=== PATIENT | female | born 1965 | race Caucasian/White ===

== ENCOUNTER → 2018-06-14 | Outpatient (CLI) | payer BC, OTHER ==
[~2018-06-14] VITALS: Ht 170.2 cm; Wt 68.0 kg
[~2018-06-14] MED LIST: ALLEGRA ALLERG180 MG PO; ALMOTRIPTAN M12.5 MG PO; CELEXA20 MG PO; FLEXERIL PO; VITAMIN B-12500 MCG PO; VITAMIN D-32000 UNIT PO
--- NOTE | ~2018-06-14 | PATH ---
[facility] [address] [place] [address] PATHOLOGY RPT PROCEDURE Name: SANTINOARACELI Room #: REG HYUN Vaughan.#: [id number] Admission: 06/14/18 Date of : 69 Discharge: Report #: [id number] Path Case #: [id number] [facility] Accession Number: [id number] . 01 Material submitted: . BX OF ESOPHAGUS R/O BARRETTS . 01 Clinical history: . Pre-OP DX: Heartburn Post-OP DX: Screening, colon, esophagitis, possible Solis's . 02 Diagnosis: Gastroesophageal mucosa, esophagus rule out Solis's, endoscopic biopsy: - Gastric cardia-type mucosa with moderate chronic inflammation and focal goblet cell change. - No definite intestinal metaplasia present. - Squamous mucosa with mild esophagitis. - Negative for dysplasia or malignancy. 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 02 Electronically signed: . Stephanie Goode MD, Pathologist NPI- [id number] . 01 Gross description: . Received in formalin labeled "Araceli De, BX of esophagus, rule out Solis's," are 5 segments of gaston soft tissue measuring 0.9 x 0.8 x 0.2 cm in aggregate dimensions and ranging from 0.2 to 0.3 cm in maximum dimension. The specimen is submitted entirely in cassette A1. (TSD; 06/14/2018) TOB/TOB . 02 Pathologist provided ICD-10: K20.9 . 02 CPT . 938035 Specimen Comment: A courtesy copy of this report has been sent to Specimen Comment: [phone], . Specimen Comment: Report sent to / YUDI Performed at: [address] [id number] MD Aman Baker MD Phone: [phone] Performed at: [address] [address] PATHOLOGY RPT PROCEDURE Name: ARACELI DE Room #: REG HYUN Coppola#: [id number] Admission: 06/14/18 Date of : 69 Discharge: Report #: [id number] Path Case #: [id number] [address] [place] [id number] MD Stephanie Goode MD Phone: [phone]
== END | disposition home or self-care (01) ==
LOC: GI 06:58
DX: Z12.11 Encounter for screening for malignant neoplasm of colon (principal); K64.8 Other hemorrhoids; K21.0 Gastro-esophageal reflux disease with esophagitis; K22.8 Other specified diseases of esophagus; K44.9 Diaphragmatic hernia without obstruction or gangrene; G43.909 Migraine, unspecified, not intractable, without status migrainosus; F32.9 Major depressive disorder, single episode, unspecified; F41.9 Anxiety disorder, unspecified; Z98.890 Other specified postprocedural states; Z79.899 Other long term (current) drug therapy
CPT/HCPCS: 62110; 62900